=== PATIENT | female | born 1925 | race Caucasian/White ===

== ENCOUNTER 2017-07-09 13:50 | Observation (INO) | payer MEDICARE ==
--- NOTE | 2017-07-09 14:34 | ER Document Report ---
ED Hip Pain/Injury - General Chief Complaint: Hip Injury Stated Complaint: HIP,ARM PAIN Time Seen by Provider: 07/09/17 14:12 Information source: Patient Notes: Patient is an 89-year-old female who had an accidental fall landing on her left side. Patient states she has frequent falls but normally is able to remember the entire incident. She states she believes she passed out today causing the fall. She states she does not remember the incident and just remembers her [id number] standing over her. She had no incontinence. She had no headache, lightheadedness, dizziness, chest pain, palpitations precipitating the fall. Patient now complains of pain to her left hip, left knee, with an abrasion to the left elbow. Patient denies any recent dysuria, vomiting, or diarrhea. TRAVEL OUTSIDE OF THE [place] IN LAST 30 DAYS: No - HPI Patient complains to provider of: Injury, Pain Occurred: Just prior to arrival Where: Indoors Onset/Duration: Sudden Quality of pain: Achy, Dull Severity: Moderate Pain Level: 3 Context: Fainted Symptoms prior to fall: denies: Chest pain Symptoms since fall: denies: GI bleed Skin Color: Normal Pain with palpation of the pelvis: No Other injuries: LUE, LLE - Related Data Allergies/Adverse Reactions: erythromycin base [Erythromycin Base] Allergy (Verified 04/18/14 12:07) Past Medical History - General Information source: Patient - Social History Smoking Status: Never Smoker Cigarette use (# per day): No Chew tobacco use (# tins/day): No Smoking Education Provided: No Frequency of alcohol use: None Drug Abuse: None Family History: Reviewed & Not Pertinent Patient has suicidal ideation: No Patient has homicidal ideation: No - Past Medical History Cardiac Medical History: Reports: Hx Atrial Fibrillation, Hx Hypercholesterolemia, Hx Hypertension Endocrine Medical History: Reports: Hx Diabetes Mellitus Type 2, Hx Hypothyroidism Renal/ Medical History: Denies: Hx Peritoneal Dialysis Past Surgical History: Reports: Hx Hysterectomy, Hx Orthopedic Surgery - Right Elbow (per patient). - Immunizations Hx Diphtheria, Pertussis, Tetanus Vaccination: Yes Review of Systems - Review of Systems Constitutional: denies: Fever EENT: denies: Eye discharge, Nose discharge Cardiovascular: denies: Chest pain, Palpitations, Syncope, Dizziness, Lightheaded Respiratory: denies: Short of breath Gastrointestinal: denies: Abdominal pain, Vomiting Genitourinary: denies: Dysuria Skin: Other - no hives. denies: Rash Neurological/Psychological: Other - no slurred speech -: Yes All other systems reviewed and negative Physical Exam - Vital signs Vitals: Temp Pulse Resp BP Pulse Ox 98.6 F 74 16 156/84 H 99 07/09/17 13:55 07/09/17 13:55 07/09/17 13:55 07/09/17 13:55 07/09/17 13:55 Notes: Reviewed vital signs and nursing note as charted by RN. CONSTITUTIONAL: Alert and oriented and responds appropriately to questions. Well -appearing; well-nourished HEAD: Normocephalic; atraumatic EYES: PERRL NECK: Supple without meningismus; non-tender CARD: Regular rate and rhythm; no murmurs RESP: Normal chest excursion without splinting or tachypnea; breath sounds clear and equal bilaterally ABD/GI: Normal bowel sounds; non-distended; soft, non-tender BACK: The back appears normal and is non-tender to palpation EXT: Patient has tenderness to the left anterior and lateral hip. No obvious erythema, redness, or malformation. Leg is not appreciably shortened. Patient did have a sheet wrapped around the pelvis upon arrival. Patient also has some tenderness to the mid left femur and left knee. No obvious swelling or deformity noted. Neurovascularly intact distally to the left leg. Regarding the left upper extremity the patient has a small skin tear to the left elbow. Full range of motion with no tenderness or deformity SKIN: See above NEURO: Minimal range of motion secondary to the left leg/hip pain. No other neuro deficits noted PSYCH: The patient's mood and manner are appropriate. Grooming and personal hygiene are appropriate. Course - Re-evaluation Re-evalutation: Given the above history and physical examination, we will order cardiac panel, EKG, CT scan of the head given the patient's age and fall, and a x-ray of the left hip, pelvis, femur, and knee. 07/09/17 16:[address] scan of the head shows only the scalp hematoma. X-rays of the pelvis, hip, thigh, knee, are negative for fractures. Labs as recorded. This appears to be the patient's baseline creatinine. Normal troponin. EKG shows a heart rate of 58, normal sinus rhythm, left axis deviation, LVH with incomplete left bundle branch block. - Vital Signs Vital signs: Temp Pulse Resp BP Pulse Ox 98.6 F 74 16 156/84 H 99 07/09/17 13:55 07/09/17 13:55 07/09/17 13:55 07/09/17 13:55 07/09/17 13:55 - Laboratory Result Diagrams: 07/09/17 14:15 07/09/17 15:25 Laboratory results interpreted by me: 07/09/17 07/09/17 14:15 15:25 WBC 15.1 H Seg Neutrophils % 89.4 H Lymphocytes % 5.2 L Absolute Neutrophils 13.5 H Sodium 136.5 L BUN 36 H Creatinine 1.85 H Est GFR ( Amer) 31 L Est GFR (Non-Af Amer) 26 L Glucose 162 H Discharge - Discharge Clinical Impression: Syncope Qualifiers: Syncope type: unspecified Qualified Code(s): R55 - Syncope and collapse Closed head injury Qualifiers: Encounter type: initial encounter Qualified Code(s): S09.90XA - Unspecified injury of head, initial encounter Contusion of left hip Qualifiers: Encounter type: initial encounter Qualified Code(s): S70.02XA - Contusion of left hip, initial encounter Condition: Fair Disposition: ADMITTED OBSERVATION Admitting Provider: Hospitalist Unit Admitted: Telemetry Referrals: BREEZY AMIN MD [Primary Care Provider] - Follow up as needed
[2017-07-09 15:10] LABS: ABSOLUTE LYMPHOCYTES (AUTO) 0.8 10^3/uL (0.5-4.7); ABSOLUTE MONOCYTES (AUTO) 0.8 10^3/uL (0.1-1.4); ABSOLUTE NEUT (AUTO) 13.5 10^3/uL (1.7-8.2); BASOPHILS % (AUTO) 0.2 % (0-2); EOSINOPHILS % (AUTO) 0.1 % (0-6); HEMATOCRIT 36.9 % (36.0-47.0); HEMOGLOBIN 12.4 g/dL (12.0-15.5); HGB HCT DIFFERENCE 0.3; LYMPHOCYTES % (AUTO) 5.2 % (13-45); MEAN CORPUSCULAR HEMOGLOBIN 31.6 pg (27.0-33.4); MEAN CORPUSCULAR HGB CONC 33.6 g/dL (32.0-36.0); MEAN CORPUSCULAR VOLUME 94 fl (80-97); MONOCYTES % (AUTO) 5.1 % (3-13); RED BLOOD COUNT 3.93 10^6/uL (3.72-5.28); RED CELL DISTRIBUTION WIDTH 13.4 % (11.5-14.0); SEGMENTED NEUTROPHILS % (AUTO) 89.4 % (42-78); WHITE BLOOD COUNT 15.1 10^3/uL (4.0-10.5)
--- NOTE | 2017-07-09 15:24 | RADIOLOGY REPORT (SQ) ---
EXAM DESCRIPTION: CT HEAD WITHOUT COMPLETED DATE/TIME: 07/09/2017 3:07 pm REASON FOR STUDY: 19, Fall COMPARISON: CT brain 02/26/2010, 11/05/2012, 04/18/2014 TECHNIQUE: Axial images acquired through the brain without intravenous contrast. Images reviewed wi th bone, brain and subdural windows. Images stored on PACS. All CT scanners at this facility use dose modulation, iterative reconstruction, and/or weight based d osing when appropriate to reduce radiation dose to as low as reasonably achievable (ALARA). [facility]: Dose Right [facility]: CareDose [facility]: Dose Right [facility]: Teradose 4D [facility]: Airtime RADIATION DOSE: 64.6 mGy. LIMITATIONS: None. FINDINGS: VENTRICLES: Normal size and contour. CEREBRUM: No masses. No hemorrhage. No midline shift. No evidence for acute infarction. Extensive areas of stable low density in the white matter most likely chronic small vessel ischemic changes. CEREBELLUM: No masses. No hemorrhage. No alteration of density. No evidence for acute infarction. EXTRAAXIAL SPACES: No fluid collections. No masses. ORBITS AND GLOBE: No intra- or extraconal masses. Normal contour of globe without masses. CALVARIUM: No fracture. PARANASAL SINUSES: No fluid or mucosal thickening. SOFT TISSUES: Left parietal scalp hematoma OTHER: No other significant finding. IMPRESSION: Left parietal scalp hematoma. No rib skull fracture or acute intracranial changes Chronic appearing white matter small vessel disease, stable EVIDENCE OF ACUTE STROKE: NO. COMMENT: Quality ID # [id number]: Final reports with documentation of one or more dose reduction techniques (e.g., Automated exposure control, adjustment of the mA and/or kV according to patient size, use of iterative reconstruction technique) TECHNICAL DOCUMENTATION: JOB ID: [id number] [employer]- All Rights Reserved
--- NOTE | 2017-07-09 15:25 | RADIOLOGY REPORT (SQ) ---
EXAM DESCRIPTION: HIP LEFT AP/LATERAL COMPLETED DATE/TIME: 07/09/2017 3:04 pm REASON FOR STUDY: 19, fall COMPARISON: None. NUMBER OF VIEWS: Two views. TECHNIQUE: AP pelvis and additional frog-leg view of the left hip. LIMITATIONS: None. FINDINGS: MINERALIZATION: Osteopenia. LEFT HIP: No fracture or dislocation. No worrisome bone lesions. RIGHT HIP: No fracture or dislocation. No worrisome bone lesions. PUBIS AND ISCHIUM: No fracture. PELVIS: No fracture. SACRUM: No fracture or dislocation. No worrisome bone lesions. LOWER LUMBAR SPINE: No fracture or dislocation. No worrisome bone lesions. No significant disc disea se. SOFT TISSUES: No findings. OTHER: No other significant finding. IMPRESSION: NEGATIVE STUDY OF THE LEFT HIP AND PELVIS. NO RADIOGRAPHIC EVIDENCE OF ACUTE INJURY. TECHNICAL DOCUMENTATION: JOB ID: [id number] [employer]- All Rights Reserved
--- NOTE | 2017-07-09 15:26 | RADIOLOGY REPORT (SQ) ---
EXAM DESCRIPTION: FEMUR LEFT COMPLETED DATE/TIME: 07/09/2017 3:04 pm REASON FOR STUDY: 19, fall COMPARISON: None. NUMBER OF VIEWS: Two views. TECHNIQUE: Two radiographic images acquired of the left femur to include hip and knee in at least on e projection. LIMITATIONS: None. FINDINGS: MINERALIZATION: Osteopenia. BONES: No acute fracture. No worrisome bone lesions. SOFT TISSUES: No obvious swelling or foreign body. OTHER: No other significant finding. IMPRESSION: NEGATIVE STUDY OF THE LEFT FEMUR. NO RADIOGRAPHIC EVIDENCE OF ACUTE INJURY. TECHNICAL DOCUMENTATION: JOB ID: [id number] [employer]- All Rights Reserved
--- NOTE | 2017-07-09 15:27 | RADIOLOGY REPORT (SQ) ---
EXAM DESCRIPTION: KNEE LEFT 4 VIEW COMPLETED DATE/TIME: 07/09/2017 3:04 pm REASON FOR STUDY: 19, fall COMPARISON: None. NUMBER OF VIEWS: Four views. TECHNIQUE: AP, lateral, and both oblique radiographic images acquired of the left knee. LIMITATIONS: None. FINDINGS: MINERALIZATION: Osteopenia. BONES: No acute fracture or dislocation. No worrisome bone lesions. JOINT: No effusion. There are tiny posterior patellar spurs. There is slight narrowing of the later al joint compartment. SOFT TISSUES: No soft tissue swelling. No radio-opaque foreign body. OTHER: No other significant finding. IMPRESSION: Mild degenerative joint changes with no acute abnormality. TECHNICAL DOCUMENTATION: JOB ID: [id number] [employer]- All Rights Reserved
[2017-07-09 15:53] LABS: ANION GAP 11 (5-19); BLOOD UREA NITROGEN 36 mg/dL (7-20); CALCIUM 8.7 mg/dL (8.4-10.2); CARBON DIOXIDE 26 mmol/L (22-30); CHLORIDE 100 mmol/L (98-107); CREATININE RESULT 1.85 mg/dL (0.52-1.25); GLUCOSE 162 mg/dL (75-110); POTASSIUM 4.1 mmol/L (3.6-5.0); SODIUM 136.5 mmol/L (137-145)
[2017-07-09] MEDS ORDERED: ACETAMINOPHEN 325 MG TABLET PO PRN (16:45)
[2017-07-09] MEDS ORDERED: NORMAL SALINE 1000 ML 1,000 ML IV PRN (16:45)
[2017-07-09] MEDS ORDERED: ONDANSETRON HCL INJ/PF 4 MG/2 ML SDV IV PRN (16:45)
--- NOTE | 2017-07-09 16:57 | RADIOLOGY REPORT (SQ) ---
EXAM DESCRIPTION: CHEST SINGLE VIEW COMPLETED DATE/TIME: 07/09/2017 4:46 pm REASON FOR STUDY: 19, cough COMPARISON: 11/05/2012 EXAM PARAMETERS: NUMBER OF VIEWS: One view. TECHNIQUE: Single frontal radiographic view of the chest acquired. RADIATION DOSE: NA LIMITATIONS: None. FINDINGS: LUNGS AND PLEURA: No opacities, masses or pneumothorax. No pleural effusion. MEDIASTINUM AND HILAR STRUCTURES: No masses. Contour normal. HEART AND VASCULAR STRUCTURES: Heart normal in size. Normal vasculature. BONES: No acute findings. HARDWARE: None in the chest. OTHER: No other significant finding. IMPRESSION: NO ACUTE RADIOGRAPHIC FINDING IN THE CHEST. TECHNICAL DOCUMENTATION: JOB ID: [id number] [employer]- All Rights Reserved
[2017-07-09 18:00] LABS: APPEARANCE,URINE SLIGHTLY-CLOUDY; BILIRUBIN,URINE NEGATIVE (NEGATIVE); GLUCOSE, URINE NEGATIVE (NEGATIVE); KETONES,URINE NEGATIVE (NEGATIVE); LEUKOCYTE ESTERASE,URINE MODERATE (NEGATIVE); NITRITE,URINE POSITIVE (NEGATIVE); PROTEIN,URINE NEGATIVE (NEGATIVE); URINE SPECIFIC GRAVITY 1.009; UROBILINOGEN,URINE NEGATIVE mg/dL (<2.0)
--- NOTE | 2017-07-09 18:57 | EKG REPORT ---
SEVERITY:- ABNORMAL ECG - SINUS RHYTHM INCOMPLETE LEFT BUNDLE BRANCH BLOCK OLD ANTERIOR MA : Confirmed by: Huber Brown MD 09-Jul-2017 18:56:26
[2017-07-09] MEDS ORDERED: TRAMADOL HCL 50 MG TABLET PO PRN (20:33)
[2017-07-09] MEDS ORDERED: DEXTROSE 50%-WATER 25 GM/50 ML DISP.SYRIN IV PRN ×2 (20:34)
[2017-07-09] MEDS ORDERED: GLUCAGON,HUMAN RECOMB 1 MG INJ IM PRN (20:34)
[2017-07-09] MEDS ORDERED: INSULIN LISPRO 100 UNIT/ML 3 ML VIAL SUBCUT PRN (20:34)
[2017-07-09] MEDS ORDERED: DEXTROSE 40% GEL 15 GM TUBE PO PRN ×2 (20:34)
--- NOTE | 2017-07-09 20:47 | PDOC H&P ---
History of Present Illness Admission Date/PCP: 07/09/17 17:23 BREEZY AMIN MD Patient complains of: Fall History of Present Illness: CHIO HUMMEL is a 89 year old female with a history of hypertension, diabetes hypothyroidism and hyperlipidemia presenting with a complaint of falling down. Patient states she was coming from picking up the newspaper and when walking in the house fell down. Patient has a sitter who lives with her and found the patient down on the floor. It appears as if patient fell on her left side. However patient was somewhat sitting up against the wall when she was found. Patient does not remember happening. Patient sitter states that patient eyes where open when she was found. Patient does have a history of falling on a regular basis as she is unstable on her feet. She walks with a cane. Patient states she did not pass out however she does not remember the event. The sitter states that since patient has had a cold and taking medication she has been somewhat forgetful and just not herself. Normally her mind is more clear. Patient does report having some some urinary symptoms like burning which she states went away. In the ED for patient found to have leukocytosis. Patient UA is concerning for a UTI. Patient also has a wide pulse pressure. Past Medical History Cardiac Medical History: Reports: Atrial Fibrillation, Hyperlipidema, Hypertension Endocrine Medical History: Reports: Diabetes Mellitus Type 2, Hypothyroidism Past Surgical History Past Surgical History: Reports: Hysterectomy, Orthopedic Surgery - Right Elbow ( per patient). Social History Information Source: Patient Smoking Status: Never Smoker - Advance Directive Resuscitation Status: Full Code Family History Family History: Other - Patient family is disease and she does not recall any history. Parental Family History Reviewed: No Children Family History Reviewed: No Sibling(s) Family History Reviewed.: No Medication/Allergy Home Medications: Cetirizine HCl [Zyrtec 10 mg Tablet] 10 mg PO QHS 07/09/17 Glipizide [Glipizide ER] 2.5 mg PO DAILY 07/09/17 Hydrochlorothiazide [Hydrodiuril 25 mg Tablet] 25 mg PO DAILY 07/09/17 Levothyroxine Sodium [Synthroid 0.15 mg Tablet] 0.15 mg PO DAILY 07/09/17 Metoprolol Succinate [Toprol Xl 50 mg Tab.sr] 50 mg PO DAILY 07/09/17 Ranitidine HCl [Zantac 150 mg Tablet] 150 mg PO BID 07/09/17 Simvastatin [Zocor 80 mg Tablet] 80 mg PO QHS 07/09/17 Sitagliptin Phosphate [Januvia 50 mg Tablet] 50 mg PO DAILY 07/09/17 Solifenacin Succinate [Vesicare] 5 mg PO DAILY 07/09/17 Tramadol HCl [Ultram 50 mg Tablet] 50 mg PO BIDP PRN 07/09/17 Valsartan [Diovan] 320 mg PO DAILY 07/09/17 Allergies/Adverse Reactions: erythromycin base [Erythromycin Base] Allergy (Verified 04/18/14 12:07) Review of Systems Constitutional: ABSENT: chills, fever(s), headache(s), weight gain, weight loss Eyes: ABSENT: visual disturbances Ears: ABSENT: hearing changes Cardiovascular: ABSENT: chest pain, dyspnea on exertion, edema, orthropnea, palpitations Respiratory: ABSENT: cough, hemoptysis Gastrointestinal: ABSENT: abdominal pain, constipation, diarrhea, hematemesis, hematochezia, nausea, vomiting Genitourinary: PRESENT: dysuria. ABSENT: hematuria Musculoskeletal: ABSENT: joint swelling Integumentary: ABSENT: rash, wounds Neurological: PRESENT: confusion, frequent falls. ABSENT: abnormal gait, abnormal speech, dizziness, focal weakness, syncope Psychiatric: ABSENT: anxiety, depression, homidical ideation, suicidal ideation Endocrine: ABSENT: cold intolerance, heat intolerance, polydipsia, polyuria Hematologic/Lymphatic: ABSENT: easy bleeding, easy bruising Physical Exam Vital Signs: Temp Pulse Resp BP Pulse Ox 98.6 F 74 18 160/61 H 99 07/09/17 13:55 07/09/17 13:55 07/09/17 18:01 07/09/17 18:01 07/09/17 18:01 Intake & Output 07/08/17 07/09/17 07/10/17 06:59 06:59 06:59 Weight 67.132 kg General appearance: PRESENT: no acute distress, well-developed, well-nourished Head exam: PRESENT: atraumatic, normocephalic Eye exam: PRESENT: conjunctiva pink, EOMI, PERRLA. ABSENT: scleral icterus Ear exam: PRESENT: normal external ear exam Mouth exam: PRESENT: moist, tongue midline Neck exam: ABSENT: carotid bruit, JVD, lymphadenopathy, thyromegaly Respiratory exam: PRESENT: clear to auscultation alondra. ABSENT: rales, rhonchi, wheezes Cardiovascular exam: PRESENT: RRR. ABSENT: diastolic murmur, rubs, systolic murmur Pulses: PRESENT: normal dorsalis pedis pul Vascular exam: PRESENT: normal capillary refill GI/Abdominal exam: PRESENT: normal bowel sounds, soft. ABSENT: distended, guarding, mass, organolmegaly, rebound, tenderness Rectal exam: PRESENT: deferred Extremities exam: PRESENT: full ROM. ABSENT: calf tenderness, clubbing, pedal edema Neurological exam: PRESENT: alert, awake, oriented to person, oriented to place , oriented to time, oriented to situation, CN II-XII grossly intact. ABSENT: motor sensory deficit Psychiatric exam: PRESENT: appropriate affect, normal mood. ABSENT: homicidal ideation, suicidal ideation Skin exam: PRESENT: dry, intact, warm. ABSENT: cyanosis, rash Results Laboratory Results: 07/09/17 17:30 Urine Color YELLOW Urine Appearance SLIGHTLY-CLOUDY Urine pH 6.0 Ur Specific [place] 1.009 Urine Protein NEGATIVE Urine Glucose (UA) NEGATIVE Urine Ketones NEGATIVE Urine Blood SMALL H Urine Nitrite POSITIVE H Ur Leukocyte Esterase MODERATE H Urine WBC (Auto) 81 Urine RBC (Auto) 1 Impressions: Femur X-Ray 07/09/17 14:24 IMPRESSION: NEGATIVE STUDY OF THE LEFT FEMUR. NO RADIOGRAPHIC EVIDENCE OF ACUTE INJURY. Head CT 07/09/17 14:24 IMPRESSION: Left parietal scalp hematoma. No rib skull fracture or acute intracranial changes Chronic appearing white matter small vessel disease, stable EVIDENCE OF ACUTE STROKE: NO. Hip X-Ray 07/09/17 14:24 IMPRESSION: NEGATIVE STUDY OF THE LEFT HIP AND PELVIS. NO RADIOGRAPHIC EVIDENCE OF ACUTE INJURY. Knee X-Ray 07/09/17 14:24 IMPRESSION: Mild degenerative joint changes with no acute abnormality. Chest X-Ray 07/09/17 16:25 IMPRESSION: NO ACUTE RADIOGRAPHIC FINDING IN THE CHEST. Assessment & Plan - Diagnosis (1) Syncope Qualifiers: Syncope type: vasovagal syncope Qualified Code(s): R55 - Syncope and collapse Is this a current diagnosis for this admission?: Yes Plan: Concern for possible symptomatic orthostatic hypotension. She was walking when the episode happened and does not remember when it occurred. Patient has a wide pulse pressure and is on multiple blood pressure medications to her prone to hypotension. Will check orthostatics and hydrate patient. Will hold blood pressure medications for now. Will also order cardiac echo and carotid Dopplers. (2) CKD (chronic kidney disease) stage 3, GFR 30-59 ml/min Is this a current diagnosis for this admission?: Yes Plan: Appears to be around her baseline. Will continue IV hydration and monitor. (4) Hypothyroid Is this a current diagnosis for this admission?: Yes Plan: Continue with thyroid replacement. (5) UTI (urinary tract infection) Is this a current diagnosis for this admission?: Yes Plan: UA is concerning for possible UTI. This may explain some of her forgetfulness and may lead to more frequent falls. Patient started on ceftriaxone. Consult PT. (6) Closed head injury Qualifiers: Encounter type: initial encounter Qualified Code(s): S09.90XA - Unspecified injury of head, initial encounter Is this a current diagnosis for this admission?: Yes Plan: As a result of the fall. Currently stable. (7) Contusion of left hip Qualifiers: Encounter type: initial encounter Qualified Code(s): S70.02XA - Contusion of left hip, initial encounter Is this a current diagnosis for this admission?: Yes Plan: No fracture of the hip. Will continue with pain management. - Time Time Spent: 30 to 50 Minutes Anticipated discharge: Home with Homehealth Within: within 48 hours - Inpatient Certification Medical Necessity: Need For Continuous Telemetry Monitoring, Need for IV Antibiotics
[2017-07-09] MEDS: CETIRIZINE 10 MG TABLET PO SCH (22:30)
[2017-07-09] MEDS: TOLTERODINE TARTRATE 1 MG TABLET PO SCH (22:30)
[2017-07-09] MEDS: FAMOTIDINE 20 MG TABLET PO SCH (22:30)
[2017-07-10] MEDS ORDERED: CEFTRIAXONE 1 GM/D5W RTU 1 GM/50 ML RTUPB IV SCH (10:00)
[2017-07-10] MEDS ORDERED: (PENDING PHARMACY ID) (Ranitidine Hcl [Zantac 150 Mg Tablet] 150 MG) PO SCH (10:00)
[2017-07-10] MEDS ORDERED: (PENDING PHARMACY ID) (Solifenacin Succinate [Vesicare] 5 MG) PO SCH (10:00)
[2017-07-10 10:13] LABS: ABSOLUTE LYMPHOCYTES (AUTO) 1.2 10^3/uL (0.5-4.7); ABSOLUTE MONOCYTES (AUTO) 0.8 10^3/uL (0.1-1.4); ABSOLUTE NEUT (AUTO) 7.6 10^3/uL (1.7-8.2); BASOPHILS % (AUTO) 0.5 % (0-2); EOSINOPHILS % (AUTO) 0.5 % (0-6); HEMATOCRIT 36.5 % (36.0-47.0); HEMOGLOBIN 12.6 g/dL (12.0-15.5); HGB HCT DIFFERENCE 1.3; LYMPHOCYTES % (AUTO) 12.8 % (13-45); MEAN CORPUSCULAR HEMOGLOBIN 31.9 pg (27.0-33.4); MEAN CORPUSCULAR HGB CONC 34.5 g/dL (32.0-36.0); MEAN CORPUSCULAR VOLUME 93 fl (80-97); RED BLOOD COUNT 3.93 10^6/uL (3.72-5.28); RED CELL DISTRIBUTION WIDTH 13.1 % (11.5-14.0); SEGMENTED NEUTROPHILS % (AUTO) 78.2 % (42-78); WHITE BLOOD COUNT 9.7 10^3/uL (4.0-10.5)
[2017-07-10 10:29] LABS: ANION GAP 10 (5-19); BLOOD UREA NITROGEN 25 mg/dL (7-20); CARBON DIOXIDE 27 mmol/L (22-30); CHLORIDE 100 mmol/L (98-107); CREATININE RESULT 1.52 mg/dL (0.52-1.25); GLUCOSE 126 mg/dL (75-110); MAGNESIUM 1.9 mg/dL (1.6-2.3); POTASSIUM 4.1 mmol/L (3.6-5.0); SODIUM 137.4 mmol/L (137-145)
--- NOTE | 2017-07-10 11:41 | RADIOLOGY REPORT (SQ) ---
EXAM DESCRIPTION: CAROTID DOPPLER COMPLETED DATE/TIME: 07/10/2017 10:27 am REASON FOR STUDY: syncope R55 SYNCOPE AND COLLAPSE COMPARISON: None. TECHNIQUE: Grayscale ultrasound, Doppler velocity and spectra, and color Doppler images acquired of the extra-cranial carotid and vertebral arteries. Images stored on PACS. LIMITATIONS: None. FINDINGS: RIGHT CAROTID CCA Velocities: Within normal limits. ICA Velocities Peak systolic 0.66 m/s. End diastolic 0.15 m/s. Proximal ICA/CCA peak systolic ratio 1.2. Spectra normal. No significant plaque. LEFT CAROTID CCA Velocities: Within normal limits. ICA Velocities Peak systolic 0.94 m/s. End diastolic 0.19 m/s. Proximal ICA/CCA peak systolic ratio 1.2. Spectra normal. No significant plaque. VERTEBRAL ARTERIES: Antegrade flow. Normal waveforms. SUBCLAVIAN ARTERIES: No finding. OTHER: No other significant finding. IMPRESSION: NO HEMODYNAMICALLY SIGNIFICANT STENOSIS. COMMENT: Quality ID #[id number]: Velocity criteria are extrapolated from the diameter data as defined by t he Society of Radiologists in Ultrasound Consensus Conference. Radiology 2003: 229; 340-346. TECHNICAL DOCUMENTATION: JOB ID: [id number]- All Rights Reserved
[2017-07-10] MEDS: LEVOTHYROXINE SODIUM 0.15 MG TABLET PO SCH (12:06)
[2017-07-10] MEDS: TOLTERODINE TARTRATE 1 MG TABLET PO SCH ×2 (12:07→22:05)
[2017-07-10] MEDS: FAMOTIDINE 20 MG TABLET PO SCH ×2 (12:07→22:05)
--- NOTE | 2017-07-10 14:17 | PDOC PROGRESS REPORT ---
Subjective Progress Note for:: 07/10/17 Subjective:: Patient is a 89 year old female presented after a fall. Patient found to have a UTI. Patient states that her hip hurts. Explained to her that her hip would hurt for some time. I reassure her that it is not broken. I asked her to please work with PT. Reason For Visit: SYNCOPE Physical Exam Vital Signs: Temp Pulse Resp BP Pulse Ox 98.1 F 61 17 150/63 H 100 07/10/17 11:01 07/10/17 11:01 07/10/17 11:01 07/10/17 11:01 07/10/17 11:01 Intake & Output 07/09/17 07/10/17 07/11/17 06:59 06:59 06:59 Intake Total 1300 Output Total 350 Balance 950 Weight 84.9 kg General appearance: PRESENT: no acute distress, obese Head exam: PRESENT: normocephalic Eye exam: PRESENT: EOMI. ABSENT: scleral icterus Ear exam: PRESENT: normal external ear exam Mouth exam: PRESENT: moist Neck exam: ABSENT: carotid bruit, JVD, lymphadenopathy, thyromegaly Respiratory exam: PRESENT: clear to auscultation alondra. ABSENT: rales, rhonchi, wheezes Cardiovascular exam: PRESENT: RRR. ABSENT: diastolic murmur, rubs, systolic murmur Pulses: PRESENT: normal dorsalis pedis pul Vascular exam: PRESENT: normal capillary refill GI/Abdominal exam: PRESENT: normal bowel sounds, soft. ABSENT: distended, guarding, mass, organolmegaly, rebound, tenderness Rectal exam: PRESENT: deferred Extremities exam: PRESENT: full ROM. ABSENT: calf tenderness, clubbing, pedal edema Neurological exam: PRESENT: alert, awake, oriented to person, oriented to place , oriented to time, oriented to situation, CN II-XII grossly intact. ABSENT: motor sensory deficit Psychiatric exam: PRESENT: appropriate affect, normal mood. ABSENT: homicidal ideation, suicidal ideation Skin exam: PRESENT: dry, intact, warm. ABSENT: cyanosis, rash Results Laboratory Results: 07/10/17 08:00 07/10/17 09:55 07/09/17 07/10/17 07/10/17 17:30 08:00 09:55 WBC 9.7 RBC 3.93 Hgb 12.6 Hct 36.5 MCV 93 MCH 31.9 MCHC 34.5 RDW 13.1 Plt Count 121 L Seg Neutrophils % 78.2 H Lymphocytes % 12.8 L Monocytes % 8.0 Eosinophils % 0.5 Basophils % 0.5 Absolute Neutrophils 7.6 Absolute Lymphocytes 1.2 Absolute Monocytes 0.8 Absolute Eosinophils 0.0 Absolute Basophils 0.0 Sodium 137.4 Potassium 4.1 Chloride 100 Carbon Dioxide 27 Anion Gap 10 BUN 25 H Creatinine 1.52 H Est GFR ( Amer) 39 L Est GFR (Non-Af Amer) 32 L Glucose 126 H Calcium 9.0 Magnesium 1.9 Urine Color YELLOW Urine Appearance SLIGHTLY-CLOUDY Urine pH 6.0 Ur Specific [place] 1.009 Urine Protein NEGATIVE Urine Glucose (UA) NEGATIVE Urine Ketones NEGATIVE Urine Blood SMALL H Urine Nitrite POSITIVE H Ur Leukocyte Esterase MODERATE H Urine WBC (Auto) 81 Urine RBC (Auto) 1 Impressions: Femur X-Ray 07/09/17 14:24 IMPRESSION: NEGATIVE STUDY OF THE LEFT FEMUR. NO RADIOGRAPHIC EVIDENCE OF ACUTE INJURY. Head CT 07/09/17 14:24 IMPRESSION: Left parietal scalp hematoma. No rib skull fracture or acute intracranial changes Chronic appearing white matter small vessel disease, stable EVIDENCE OF ACUTE STROKE: NO. Hip X-Ray 07/09/17 14:24 IMPRESSION: NEGATIVE STUDY OF THE LEFT HIP AND PELVIS. NO RADIOGRAPHIC EVIDENCE OF ACUTE INJURY. Knee X-Ray 07/09/17 14:24 IMPRESSION: Mild degenerative joint changes with no acute abnormality. Chest X-Ray 07/09/17 16:25 IMPRESSION: NO ACUTE RADIOGRAPHIC FINDING IN THE CHEST. Carotid Doppler Study 07/10/17 00:00 IMPRESSION: NO HEMODYNAMICALLY SIGNIFICANT STENOSIS. Assessment & Plan - Diagnosis (1) Syncope Qualifiers: Syncope type: vasovagal syncope Qualified Code(s): R55 - Syncope and collapse Is this a current diagnosis for this admission?: Yes Plan: Patient has not had any further episodes. Patient is not orthostatic but she has a wide pulse pressure. Patient beta ulysses held as she is bradycardic. Unfortunately patient has been hydrated prior to checking her blood pressures. Patient carotids are not occluded. Will have patient work with PT. Still awaiting echo. (2) CKD (chronic kidney disease) stage 3, GFR 30-59 ml/min Is this a current diagnosis for this admission?: Yes Plan: Acute on chronic renal disease stage 3. Patient renal function better with hydration. (3) Type 2 diabetes mellitus Is this a current diagnosis for this admission?: Yes Plan: Patient on oral medications at home. She is refusing SSI here. Patient blood glucose are fairly stable. (4) Hypothyroid Is this a current diagnosis for this admission?: Yes Plan: Continue with thyroid replacement. (5) UTI (urinary tract infection) Is this a current diagnosis for this admission?: Yes Plan: UA is concerning for possible UTI. This may explain some of her forgetfulness and may lead to more frequent falls. Continue ceftriaxone. (6) Closed head injury Qualifiers: Encounter type: initial encounter Qualified Code(s): S09.90XA - Unspecified injury of head, initial encounter Is this a current diagnosis for this admission?: Yes Plan: As a result of the fall. Currently stable. (7) Contusion of left hip Qualifiers: Encounter type: initial encounter Qualified Code(s): S70.02XA - Contusion of left hip, initial encounter Is this a current diagnosis for this admission?: Yes Plan: No fracture of the hip. Will continue with pain management. (8) Cognitive impairment Is this a current diagnosis for this admission?: Yes Plan: Concern that patient may have vascular dementia with history of hypertension and small vessel changes on CT head. - Time Time Spent with patient: Less than 15 minutes Anticipated discharge: Home with Homehealth Within: within 24 hours - Inpatient Certification Medical Necessity: Need For Continuous Telemetry Monitoring
--- NOTE | 2017-07-10 15:41 | XCELERA REPORT ---
[address] [address] Transthoracic Echocardiogram Report Name: CHIO HUMMEL Age: 89 yrs Gender: Female : 1925 Patient Status: Inpatient Patient Location: [address] [place], [place] [id number] Study Date: 07/10/2017 08:27 AM Height: 62 in Weight: 148 lb BSA: 1.7 m2 Procedure: A two-dimensional transthoracic echocardiogram with color flow and Doppler was performed. The study was technically difficult with many images being suboptimal in quality. Reason For Study: syncope History: syncope. Ordering Physician: STACY DANG Performed By: Vonda Allen Interpretation Summary The left ventricle is normal in size. There is normal left ventricular wall thickness. LV EF is > THAN 60% Left ventricular systolic function is normal. Doppler measurements suggest normal left ventricular diastolic function The left ventricular wall motion is normal. There is no thrombus. The right ventricle is normal in size and function. There is no evidence of mitral valve prolapse. There is no vegetation seen on the mitral valve. There is no mitral valve stenosis. There is a mild amount of mitral regurgitation There is no aortic valve stenosis There is no LVOT obstruction. There is a mild amount of aortic regurgitation There is no tricuspid stenosis. There is a mild amount of tricuspid regurgitation There is moderate pulmonary hypertension by echo RVSP is 55 mm of Hg , with RA mean of 5. There is a mild amount of pulmonic regurgitation The aortic root is normal size. There is no pericardial effusion. MMode/2D Measurements & Calculations RVDd: 2.2 cm LVIDd: 4.2 cm FS: 29.3 % Ao root diam: 3.1 cm IVSd: 1.1 cm LVIDs: 3.0 cm EDV(Teich): 78.8 ml LVPWd: 1.1 cm ESV(Teich): 34.2 ml Ao root area: 7.8 cm2 EF(Teich): 56.6 % LA dimension: 3.2 cm Doppler Measurements & Calculations MV E max adonis: MV P1/2t max adonis: Ao V2 max: AI max adonis: 96.3 cm/sec 96.3 cm/sec 138.5 cm/sec 272.8 cm/sec MV A max adonis: MV P1/2t: 62.5 msec Ao max PG: AI max P.9 cm/sec 7.7 mmHg 29.8 mmHg MV E/A: 1.1 MVA(P1/2t): 3.5 cm2 AI dec slope: MV dec slope: 450.9 cm/sec2 104.9 cm/sec2 AI P1/2t: 761.5 msec LV V1 max PG: PA V2 max: PI end-d adonis: TR max adonis: 4.5 mmHg 99.7 cm/sec 105.9 cm/sec 299.7 cm/sec LV V1 max: PA max P.0 mmHg TR max P.6 cm/sec 36.9 mmHg Left Ventricle The left ventricle is normal in size. There is normal left ventricular wall thickness. LV EF is > THAN 60%. Left ventricular systolic function is normal. Doppler measurements suggest normal left ventricular diastolic function. The left ventricular wall motion is normal. There is no thrombus. Right Ventricle The right ventricle is normal in size and function. Mitral Valve There is no evidence of mitral valve prolapse. There is no vegetation seen on the mitral valve. There is no mitral valve stenosis. There is a mild amount of mitral regurgitation. Aortic Valve There is no aortic valvular vegetation. There is no aortic valve stenosis. There is no LVOT obstruction. There is a mild amount of aortic regurgitation. Tricuspid Valve There is no tricuspid stenosis. There is a mild amount of tricuspid regurgitation. There is moderate pulmonary hypertension by echo. RVSP is 55 mm of Hg , with RA mean of 5. Pulmonic Valve There is no pulmonic valvular stenosis. There is a mild amount of pulmonic regurgitation. Great Vessels The aortic root is normal size. Effusions There is no pericardial effusion. : STACY DANGmhan, Martha
[2017-07-10] MEDS: CETIRIZINE 10 MG TABLET PO SCH (22:05)
[2017-07-11] MEDS: LEVOTHYROXINE SODIUM 0.15 MG TABLET PO SCH (09:15)
[2017-07-11] MEDS: FAMOTIDINE 20 MG TABLET PO SCH (09:15)
[2017-07-11] MEDS: TOLTERODINE TARTRATE 1 MG TABLET PO SCH (09:15)
[2017-07-11] MEDS ORDERED: CEFTRIAXONE 1 GM/D5W RTU 1 GM/50 ML RTUPB IV SCH (10:00)
[2017-07-11 13:45] VITALS: BP 149/65
--- NOTE | 2017-07-11 18:41 | PDOC DISCHARGE SUMMARY ---
General - Admit/Disc Date/PCP Admission Date/Primary Care Provider: 07/09/17 17:23 BREEZY AMIN MD Discharge Date: 07/11/17 - Discharge Diagnosis (1) Syncope Is this a current diagnosis for this admission?: Yes (2) CKD (chronic kidney disease) stage 3, GFR 30-59 ml/min Is this a current diagnosis for this admission?: Yes (3) Type 2 diabetes mellitus Is this a current diagnosis for this admission?: Yes (4) Hypothyroid Is this a current diagnosis for this admission?: Yes (5) UTI (urinary tract infection) Is this a current diagnosis for this admission?: Yes (6) Closed head injury Is this a current diagnosis for this admission?: Yes (7) Contusion of left hip Is this a current diagnosis for this admission?: Yes (8) Cognitive impairment Is this a current diagnosis for this admission?: Yes - Additional Information Resuscitation Status: Full Code Discharge Diet: As Tolerated, Regular Discharge Activity: Activity As Tolerated, Balance Activity w/Rest Home Medications: Cetirizine HCl [Zyrtec 10 mg Tablet] 10 mg PO QHS 07/09/17 Glipizide [Glipizide ER] 2.5 mg PO DAILY 07/09/17 Levothyroxine Sodium [Synthroid 0.15 mg Tablet] 0.15 mg PO DAILY 07/09/17 Ranitidine HCl [Zantac 150 mg Tablet] 150 mg PO BID 07/09/17 Sitagliptin Phosphate [Januvia 50 mg Tablet] 50 mg PO DAILY 07/09/17 Solifenacin Succinate [Vesicare] 5 mg PO DAILY 07/09/17 Tramadol HCl [Ultram 50 mg Tablet] 50 mg PO BIDP PRN 07/09/17 Simvastatin [Zocor 80 mg Tablet] 40 mg PO QHS #0 07/11/17 Valsartan [Diovan] 160 mg PO DAILY #0 07/11/17 History of Present Illness History of Present Illness: CHIO HUMMEL is a 89 year old female with a history of hypertension, diabetes hypothyroidism and hyperlipidemia presenting with a complaint of falling down. Patient states she was coming from picking up the newspaper and when walking in the house fell down. Patient has a sitter who lives with her and found the patient down on the floor. It appears as if patient fell on her left side. However patient was somewhat sitting up against the wall when she was found. Patient does not remember happening. Patient sitter states that patient eyes where open when she was found. Patient does have a history of falling on a regular basis as she is unstable on her feet. She walks with a cane. Patient states she did not pass out however she does not remember the event. The sitter states that since patient has had a cold and taking medication she has been somewhat forgetful and just not herself. Normally her mind is more clear. Patient does report having some some urinary symptoms like burning which she states went away. In the ED for patient found to have leukocytosis. Patient UA is concerning for a UTI. Patient also has a wide pulse pressure. Original history and physical dictated by Dr. Darshana Gayle. Hospital Course Hospital Course: She had brought into the hospital after sustaining what was called a syncopal episode but it appears that patient may have just fallen. Patient states that she has a history of multiple falls. Patient is very unsteady on her feet. Patient did not have any fractures on imaging of her hips and knees and femur. CT head did show left prior to close scalp hematoma. Patient is requesting a rolling walker with seat. Patient was offered inpatient rehabilitation however patient states she rather go home with home health physical therapy. Patient does have 24-hour care at home. Patient was worked up for syncope with carotid Doppler and echo which were not impressive progressive. There was concern for orthostasis as patient is on multiple antihypertensives. The patient orthostatics were completed as she after she had received fluid resuscitation. Toprol was discontinued as patient is already bradycardic. Patient's valsartan decreased by half. Patient hydrochlorothiazide was discontinued. Patient statin was decreased by half. Patient UA was concerning for possible UTI patient will also have leukocytosis on presentation. Unfortunately patient urine was not sent for her. Patient did receive 3 doses of Rocephin and patient leukocytosis did resolve. Patient has acute on chronic CKD stage III. Patient did show improvement of her renal function with IV hydration. Patient has acute on chronic CKD stage III. Patient did show improvement of her renal function with IV hydration. Patient did have some confusion which may have been due to her UTI however on CT scan of the brain there was chronic appearing white matter small vessel disease which could be evidence of possible vascular dementia. Physical Exam Vital Signs: Temp Pulse Resp BP Pulse Ox 98.2 F 64 16 149/65 H 96 07/11/17 13:49 07/11/17 13:49 07/11/17 13:49 07/11/17 13:49 07/11/17 13:49 Intake & Output 07/10/17 07/11/17 07/12/17 06:59 06:59 06:59 Intake Total 1300 1540 Output Total 350 1500 Balance 950 40 Weight 84.9 kg 84.9 kg General appearance: PRESENT: no acute distress, obese, other Head exam: PRESENT: normocephalic Eye exam: PRESENT: EOMI. ABSENT: scleral icterus Mouth exam: PRESENT: moist Neck exam: ABSENT: carotid bruit, JVD, lymphadenopathy, thyromegaly Respiratory exam: PRESENT: clear to auscultation alondra. ABSENT: rales, rhonchi, wheezes Cardiovascular exam: PRESENT: RRR. ABSENT: diastolic murmur, rubs, systolic murmur Pulses: PRESENT: normal dorsalis pedis pul Vascular exam: PRESENT: normal capillary refill GI/Abdominal exam: PRESENT: normal bowel sounds, soft. ABSENT: distended, guarding, mass, organolmegaly, rebound, tenderness Rectal exam: PRESENT: deferred Extremities exam: PRESENT: full ROM. ABSENT: calf tenderness, clubbing, pedal edema Neurological exam: PRESENT: alert, awake, oriented to person, oriented to place , oriented to time, oriented to situation, CN II-XII grossly intact. ABSENT: motor sensory deficit Psychiatric exam: PRESENT: appropriate affect, normal mood. ABSENT: homicidal ideation, suicidal ideation Skin exam: PRESENT: dry, intact, warm. ABSENT: cyanosis, rash Results Laboratory Results: 07/10/17 08:00 07/10/17 09:55 Impressions: Femur X-Ray 07/09/17 14:24 IMPRESSION: NEGATIVE STUDY OF THE LEFT FEMUR. NO RADIOGRAPHIC EVIDENCE OF ACUTE INJURY. Head CT 07/09/17 14:24 IMPRESSION: Left parietal scalp hematoma. No rib skull fracture or acute intracranial changes Chronic appearing white matter small vessel disease, stable EVIDENCE OF ACUTE STROKE: NO. Hip X-Ray 07/09/17 14:24 IMPRESSION: NEGATIVE STUDY OF THE LEFT HIP AND PELVIS. NO RADIOGRAPHIC EVIDENCE OF ACUTE INJURY. Knee X-Ray 07/09/17 14:24 IMPRESSION: Mild degenerative joint changes with no acute abnormality. Chest X-Ray 07/09/17 16:25 IMPRESSION: NO ACUTE RADIOGRAPHIC FINDING IN THE CHEST. Carotid Doppler Study 07/10/17 00:00 IMPRESSION: NO HEMODYNAMICALLY SIGNIFICANT STENOSIS. Plan Discharge Plan: Being discharged home with home health and physical therapy. Patient also receiving a rolling walker. Time Spent: Greater than 30 Minutes
== END 2017-07-11 14:42 | disposition home health service (06) ==
LOC: ER 13:50 → EH 17:23 → 4W 19:55
PROVIDERS: ADMIT Internal Medicine; ATTEND Internal Medicine
DX: R55 Syncope and collapse (principal); I12.9 Hypertensive chronic kidney disease with stage 1 through stage 4 chronic kidney disease, or unspecified chronic kidney disease; E11.22 Type 2 diabetes mellitus with diabetic chronic kidney disease; N18.3 Chronic kidney disease, stage 3 (moderate); E03.9 Hypothyroidism, unspecified; N39.0 Urinary tract infection, site not specified; S09.90XA Unspecified injury of head, initial encounter; S70.02XA Contusion of left hip, initial encounter; G31.84 Mild cognitive impairment of uncertain or unknown etiology; W19.XXXA Unspecified fall, initial encounter; Y92.009 Unspecified place in unspecified non-institutional (private) residence as the place of occurrence of the external cause; S00.03XA Contusion of scalp, initial encounter; R26.81 Unsteadiness on feet; R00.1 Bradycardia, unspecified; R90.82 White matter disease, unspecified; E78.5 Hyperlipidemia, unspecified; N17.9 Acute kidney failure, unspecified; M25.562 Pain in left knee; S51.012A Laceration without foreign body of left elbow, initial encounter; R29.6 Repeated falls; Z91.81 History of falling; I44.7 Left bundle-branch block, unspecified; Z79.899 Other long term (current) drug therapy; Z79.84 Long term (current) use of oral hypoglycemic drugs; Z90.710 Acquired absence of both cervix and uterus
CPT/HCPCS: 93005; 99285; 96360; 36415 ×2; 82962 ×3; 83735; 85025 ×2; 80048 ×2; 81001; 84484; 93306; 93880; 71010; 73552; 73502; 73562; 70450; 93010; 97110; 97163; G0378 ×3; A9270 ×10; J3490; J7030; J0696 ×2; J1815

== ENCOUNTER 2017-09-13 04:49 | Emergency (ER) | payer MEDICARE ==
[2017-09-13] MEDS ORDERED: ACETAMINOPHEN 325 MG TABLET PO ONE (05:01)
--- NOTE | 2017-09-13 05:01 | ER Document Report ---
ED Fall - General Stated Complaint: FALL Time Seen by Provider: 09/13/17 04:53 Notes: Patient is an 89-year-old female who arrives via EMS status post fall at her home. She lives with her daughter and she states due to her dementia she often gets restless at night and falls frequently. Daughter denies witnessing her fall but heard her and found her down but awake and with a deformity of the left pinky. denies blood thinners pmh; dementia, CKD, recent UTi just completed bactrim TRAVEL OUTSIDE OF THE [place] IN LAST 30 DAYS: No - Related data Allergies/Adverse Reactions: erythromycin base [Erythromycin Base] Allergy (Intermediate, Verified 07/10/17 01:00) shellfish derived Allergy (Verified 07/10/17 01:00) Past Medical History - Social History Smoking Status: Smoker,Current Status Unk Family History: Other - Patient family is disease and she does not recall any history. - Past Medical History Cardiac Medical History: Reports: Hx Atrial Fibrillation, Hx Hypercholesterolemia, Hx Hypertension Endocrine Medical History: Reports: Hx Diabetes Mellitus Type 2, Hx Hypothyroidism Renal/ Medical History: Denies: Hx Peritoneal Dialysis Past Surgical History: Reports: Hx Hysterectomy, Hx Orthopedic Surgery - Right Elbow (per patient). - Immunizations Hx Diphtheria, Pertussis, Tetanus Vaccination: Yes Review of Systems - Review of Systems Constitutional: No symptoms reported Cardiovascular: No symptoms reported Respiratory: No symptoms reported Gastrointestinal: No symptoms reported Musculoskeletal: See HPI Skin: No symptoms reported Neurological/Psychological: No symptoms reported -: Yes All other systems reviewed and negative Physical Exam - Vital signs Vitals: Temp Pulse Resp BP Pulse Ox 97.9 F 92 20 144/77 H 91 L 09/13/17 05:02 09/13/17 05:02 09/13/17 05:02 09/13/17 05:02 09/13/17 05:02 - Notes Notes: PHYSICAL EXAMINATION: GENERAL: Well-appearing, well-nourished and in no acute distress. GCS 15, oriented to person only HEAD: Atraumatic, normocephalic. EYES: Pupils equal round and reactive to light, extraocular movements intact, sclera anicteric, conjunctiva are normal. ENT: Nares patent, oropharynx clear without exudates. Moist mucous membranes. No hemanotympanum . No blood in nares. No dental fracture NECK: Normal range of motion, supple without lymphadenopathy. Trachea midline LUNGS: Breath sounds clear to auscultation bilaterally and equal. No wheezes rales or rhonchi. HEART: Regular rate and rhythm without murmurs. Pulses intact all throughout. ABDOMEN: Soft, nontender, nondistended abdomen. No guarding, no rebound. No masses appreciated. Musculoskeletal: deformity, ecchymosis and edema of the proximal phalanx of the left 5th digit. Wrist nontender full ROM. cap refill < 2 seconds in bl UE's. sensation intact bilaterally Normal range of motion, no pitting or edema. No cyanosis. Hip non tender, stable. NEUROLOGICAL: Cranial nerves grossly intact. Normal speech, normal gait. Normal sensory, motor, and reflex exams. PSYCH: Normal mood, normal affect. SKIN: Warm, No active bleeding. abrasion noted on forehead Course - Re-evaluation Re-evalutation: 09/13/17 06:30 Patient is an 89-year-old female is hemodynamically stable, no acute distress and afebrile. Presentation of head trauma in an otherwise well-appearing patient. No focal neurologic deficits on exam, no evidence of basilar skull fracture on exam without evidence of hemotympanum, raccoon eyes, or periauricular hematoma. No papilledema. Patient is not on anticoagulation. GCS is 15. No episodes of vomiting. CT head and cervical spine negative for acute fracture or hemorrhage. hand xray shows displaced and angulated midshaft proximal phalanx fracture. digital block was performed with 0.5% bupivicane and reduction attempted. Splint placed immediately. 09/13/17 07:55 Reduction film does not show any significant improvement in displacement on lateral film. a 2nd attempt was performed and an ulnar gutter splint placed with less displacement noted on post reduction film. Radiology also read a possible ulnar styloid fracture. Patient to follow up with hand specialist tomorrow. Discussed with daughter at the bedside. - Vital Signs Vital signs: Temp Pulse Resp BP Pulse Ox 97.9 F 92 20 144/77 H 91 L 09/13/17 05:02 09/13/17 05:02 09/13/17 05:02 09/13/17 05:02 09/13/17 05:02 - Diagnostic Test Radiology reviewed: Image reviewed, Reports reviewed Procedures - Immobilization Left Hand Pre-Proc Neuro Vasc Exam: Normal Immobilizer type: Ulnar Performed by: PCT Post-Proc Neuro Vasc Exam: Unchanged from pre-exam Alignment checked and good: No - persistent displacement despite multiple reductions. - Joint Reduction/Fracture Care Left 5th digit Conscious sedation: No Pre-procedure NV exam: Yes Fracture: Closed Manipulation comment: distal traction Post-procedure NV exam: Yes Reduction attempts: 2 Complications: No Notes: 09/13/17 07:53 patient placed in ulnar gutter to isolate proximal finger fracture and ulnar process fracture read on film that appears to be old Discharge - Discharge Clinical Impression: Fall Qualifiers: Encounter type: initial encounter Qualified Code(s): W19.XXXA - Unspecified fall, initial encounter Fracture of proximal phalanx of digit of left hand Qualifiers: Encounter type: initial encounter Fracture type: closed Qualified Code(s): S62.619A - Displaced fracture of proximal phalanx of unspecified finger, initial encounter for closed fracture Condition: Stable Disposition: HOME, SELF-CARE Instructions: Fractured Finger ([facility]), Head Injury Precautions ([facility]), Splint Precautions ([facility]) Additional Instructions: You fractured a bone in your left pinky. You have been placed in a splint to protect this and a possible fracture of a bone in your wrist. Please follow-up with the hand surgeon listed on your discharge paperwork tomorrow. Your can take Tylenol as needed for pain. Referrals: TITA THOMPSON DO [ACTIVE STAFF] - Follow up tomorrow
--- NOTE | 2017-09-13 05:45 | RADIOLOGY REPORT (SQ) ---
EXAM DESCRIPTION: CT HEAD WITHOUT COMPLETED DATE/TIME: 09/13/2017 5:22 am REASON FOR STUDY: fall . History of dementia. COMPARISON: CT brain 07/09/2017, 04/18/2014. TECHNIQUE: Axial images acquired through the brain without intravenous contrast. Images reviewed wi th bone, brain and subdural windows. Images stored on PACS. All CT scanners at this facility use dose modulation, iterative reconstruction, and/or weight based d osing when appropriate to reduce radiation dose to as low as reasonably achievable (ALARA). [facility]: Dose Right [facility]: CareDose [facility]: Dose Right [facility]: Teradose 4D [facility]: [employer] [facility] RADIATION DOSE: CT Rad equipment meets quality standard of care and radiation dose reduction techniq ues were employed. CTDIvol: 64.6 mGy. DLP: 1267 mGy-cm.mGy. LIMITATIONS: None. FINDINGS: VENTRICLES: Prominent. CEREBRUM: No mass effect. No hemorrhage. No midline shift. Areas of low density in the white matte r most likely due to chronic micro-vascular ischemic change. No evidence for acute territorial infar ction. CEREBELLUM: No hemorrhage. No alteration of density. No evidence for acute infarction. EXTRAAXIAL SPACES: Age-related involutional change. No fluid collections. ORBITS AND GLOBE: Symmetrical contour of the globes. CALVARIUM: No depressed fracture. PARANASAL SINUSES: No air-fluid level. SOFT TISSUES: No hematoma. IMPRESSION: No acute intracranial hemorrhage or depressed calvarial fracture. Chronic changes of at rophy and microvascular ischemia. EVIDENCE OF ACUTE STROKE: NO. TECHNICAL DOCUMENTATION: JOB ID: [id number] [facility] Quality ID # [id number]: Final reports with documentation of one or more dose reduction techniques (e.g., Au tomated exposure control, adjustment of the mA and/or kV according to patient size, use of iterative reconstruction technique) 2010 [employer]- All Rights Reserved
--- NOTE | 2017-09-13 05:50 | RADIOLOGY REPORT (SQ) ---
EXAM DESCRIPTION: CT CERVICAL SPINE WITHOUT COMPLETED DATE/TIME: 09/13/2017 5:22 am REASON FOR STUDY: fall COMPARISON: CT cervical spine 04/18/2014 TECHNIQUE: Axial images acquired through the cervical spine without intravenous contrast. Images re viewed with lung, soft tissue and bone windows. Reconstructed coronal and sagittal MPR images review ed. Images stored on PACS. All CT scanners at this facility use dose modulation, iterative reconstruction, and/or weight based d osing when appropriate to reduce radiation dose to as low as reasonably achievable (ALARA). [facility]: Dose Right [facility]: CareDose [facility]: Dose Right [facility]: Teradose 4D [facility]: Smart [employer] FX RADIATION DOSE: CT Rad equipment meets quality standard of care and radiation dose reduction techniq ues were employed. CTDIvol: 17.6 mGy. DLP: 382 mGy-cm. mGy. LIMITATIONS: None. FINDINGS: ALIGNMENT: There is mild anterolisthesis of C3 on C4 and of C6 on C7. There is mild retro listhesis of C4 on C5 and of C5 on C6. MINERALIZATION: Osteopenia. VERTEBRAL BODIES: No acute fractures or dislocation. DISCS: Multilevel disc space narrowing with osteophytes. FACETS, LATERAL MASSES, POSTERIOR ELEMENTS: Facet arthropathy. No fractures. No dislocation. HARDWARE: None in the spine. VISUALIZED RIBS: No fractures. LUNG APICES AND SOFT TISSUES: No acute findings. IMPRESSION: No acute fracture at the cervical spine. Multilevel degenerative changes. TECHNICAL DOCUMENTATION: JOB ID: [id number] FL-64 Quality ID # [id number]: Final reports with documentation of one or more dose reduction techniques (e.g., Au tomated exposure control, adjustment of the mA and/or kV according to patient size, use of iterative reconstruction technique) 2010 [employer]- All Rights Reserved
--- NOTE | 2017-09-13 06:06 | RADIOLOGY REPORT (SQ) ---
EXAM DESCRIPTION: HAND LEFT 3 VIEWS; WRIST LEFT 3 VIEWS COMPLETED DATE/TIME: 09/13/2017 5:50 am REASON FOR STUDY: fall, visible deformity prox phalanx 5th digit; fall COMPARISON: None. EXAM PARAMETERS: NUMBER OF VIEWS: Six views. TECHNIQUE: AP, lateral and oblique radiographic images acquired of the left hand. AP, lateral and oblique radiographic images acquired of the left wrist. LIMITATIONS: None. FINDINGS: LEFT HAND: MINERALIZATION: Osteopenia. BONES: There is a transverse acute, displaced fracture at the midshaft of the 5th proximal phalanx wi th volar angulation. Degenerative changes are seen at the distal and proximal interphalangeal joints at the 5th finger. SOFT TISSUES: Soft tissue swelling at the proximal 5th finger. LEFT WRIST: MINERALIZATION: Osteopenia. BONES: No acute fracture or dislocation at the wrist. Degenerative changes at the 1st carpometacarpa l joint. Remote fracture at the ulnar styloid. SOFT TISSUES: No soft tissue swelling. IMPRESSION: 1. Left hand: Transverse, displaced, angulated acute fracture at the midshaft of the 5 th proximal phalanx with overlying soft tissue swelling. 2. Left wrist: No radiographic evidence for acute fracture. TECHNICAL DOCUMENTATION: JOB ID: [id number] OH-64 2010 [employer]- All Rights Reserved
[2017-09-13] MEDS ORDERED: BUPIVACAINE HCL 0.5 % INJ/PF 30 ML SDV INJ ONE (06:07)
--- NOTE | 2017-09-13 06:12 | RADIOLOGY REPORT (SQ) ---
EXAM DESCRIPTION: RIBS BILATERAL W/PA CXR COMPLETED DATE/TIME: 09/13/2017 5:50 am REASON FOR STUDY: fall COMPARISON: Chest x-ray 07/09/2017. TECHNIQUE: Frontal view of the chest and additional views of the right and left ribs acquired. NUMBER OF VIEWS: Four view. LIMITATIONS: None. FINDINGS: FRONTAL CXR: No pneumothorax. No pleural effusion. No atelectasis or infiltrates. RIBS: No displaced rib fractures. IMPRESSION: No pneumothorax. No displaced rib fractures. COMMENT: SITE OF TRAUMA/COMPLAINT MARKED/STAMP COMPLETED: NO. TECHNICAL DOCUMENTATION: JOB ID: [id number] [place]-64 2010 [employer]- All Rights Reserved
[2017-09-13 06:31] LABS: APPEARANCE,URINE CLEAR; BILIRUBIN,URINE NEGATIVE (NEGATIVE); COLOR,URINE YELLOW; GLUCOSE, URINE NEGATIVE (NEGATIVE); KETONES,URINE NEGATIVE (NEGATIVE); LEUKOCYTE ESTERASE,URINE NEGATIVE (NEGATIVE); NITRITE,URINE NEGATIVE (NEGATIVE); PROTEIN,URINE NEGATIVE (NEGATIVE); UROBILINOGEN,URINE NEGATIVE mg/dL (<2.0)
--- NOTE | 2017-09-13 07:17 | RADIOLOGY REPORT (SQ) ---
EXAM DESCRIPTION: FINGER LEFT COMPLETED DATE/TIME: 09/13/2017 6:59 am REASON FOR STUDY: post reduction COMPARISON: Left hand x-ray 09/13/2017. NUMBER OF VIEWS: Two views. TECHNIQUE: AP view of the left hand and lateral image acquired of the left fifth finger. LIMITATIONS: Overlying splint partially obscuring bony detail. FINDINGS: MINERALIZATION: Osteopenia. BONES: Overlying splint is partially obscuring bony detail. Interval closed reduction and splint pl acement at the fracture of the 5th proximal phalanx. There is no significant interval change in the displaced, angulated fracture through the midshaft of the 5th proximal phalanx. Remote fracture at t he ulnar styloid. SOFT TISSUES: Soft tissue swelling at the proximal 5th finger. IMPRESSION: Status post closed reduction with splint placement at the displaced, angulated fracture at the midshaft of the 5th proximal phalanx with no significant interval change in the fracture align ment. COMMENT: SITE OF TRAUMA/COMPLAINT MARKED/STAMP COMPLETED: NOT APPLICABLE. TECHNICAL DOCUMENTATION: JOB ID: [id number] OH-64 2010 [employer]- All Rights Reserved
[2017-09-13 07:57] VITALS: BP 159/78
--- NOTE | 2017-09-13 08:51 | RADIOLOGY REPORT (SQ) ---
EXAM DESCRIPTION: FINGER LEFT COMPLETED DATE/TIME: 09/13/2017 8:27 am REASON FOR STUDY: post reduction, 2nd attempt COMPARISON: Earlier the same day. NUMBER OF VIEWS: Two views. TECHNIQUE: AP and lateral images acquired of the left fifth finger. LIMITATIONS: Positioning. External splint. FINDINGS: No significant change in alignment of fracture of proximal 5th phalanx. IMPRESSION: No significant change. COMMENT: SITE OF TRAUMA/COMPLAINT MARKED/STAMP COMPLETED: NOT APPLICABLE. TECHNICAL DOCUMENTATION: JOB ID: [id number] [employer]- All Rights Reserved
== END 2017-09-13 08:10 | disposition home or self-care (01) ==
LOC: ER 04:49
PROC: 0PSVXZZ Reposition Left Finger Phalanx, External Approach (ICD-10-PCS; principal; 2017-09-13)
DX: S62.617A Displaced fracture of proximal phalanx of left little finger, initial encounter for closed fracture (principal); W19.XXXA Unspecified fall, initial encounter; F03.90 Unspecified dementia, unspecified severity, without behavioral disturbance, psychotic disturbance, mood disturbance, and anxiety; E11.9 Type 2 diabetes mellitus without complications; E03.9 Hypothyroidism, unspecified; I48.91 Unspecified atrial fibrillation; E78.00 Pure hypercholesterolemia, unspecified; I10 Essential (primary) hypertension; Z91.013 Allergy to seafood; Z90.710 Acquired absence of both cervix and uterus; Z88.3 Allergy status to other anti-infective agents; Z91.81 History of falling
CPT/HCPCS: 26725; 99284; 81001; 73140; 73130; 71111; 73110; 70450; 72125; A9270; J3490